=== PATIENT | male | born 1985 | race Caucasian/White ===

== ENCOUNTER 2021-03-16 17:41 | Emergency (ER) | payer OTHER ==
[~2021-03-16 17:41] MED LIST: CARAFATE1 GM PO; PEPCID AC20 MG PO
[2021-03-16 19:02] LABS: BASOPHIL 0.6 % (0-2); HCT 44.4 % (42.0-52.0); HGB 14.7 g/dl (13.2-18.0); LYMPHOCYTE 25.6 % (15-48); MCH 28.5 pg (25.0-31.0); MCHC 33.1 g/dL (32.0-36.0); MONOCYTE 6.5 % (0-12); MPV 12.4 fL (6.0-9.5); NEUTROPHIL 63.9 % (41-80); NRBC 0; PLT 198 K/uL (150-400); RBC 5.16 M/uL (4.70-6.00); WBC 10.8 K/uL (4.0-10.5)
[2021-03-16 19:22] LABS: ALBUMIN 3.5 g/dL (3.4-5.0); BILIRUBIN - TOTAL 0.5 mg/dL (0.2-1.0); BUN/CREAT RATIO (CALC) 16.2 RATIO; CREATININE 0.68 mg/dL (0.67-1.17); GLOBULIN (CALCULATION) 4.5 g/dL; POTASSIUM 4.7 mmol/L (3.5-5.1)
[2021-03-16 19:38] LABS: AMPHETAMINES NEGATIVE (NEGATIVE); BARBITURATES NEGATIVE (NEGATIVE); ECSTASY (MDMA) NEGATIVE (NEGATIVE); MARIJUANA (THC) NEGATIVE (NEGATIVE); METHADONE NEGATIVE (NEGATIVE); OPIATES NEGATIVE (NEGATIVE); OXYCODONE NEGATIVE (NEGATIVE)
[2021-03-16 19:39] LABS: BILIRUBIN NEGATIVE (NEGATIVE); BLOOD NEGATIVE Ery/uL (NEGATIVE); CLARITY CLEAR (CLEAR); COLOR YELLOW (YELLOW); GLUCOSE (U) 3+ mg/dL (NORMAL); LEUKOCYTES NEGATIVE Leu/uL (NEGATIVE); NITRITE NEGATIVE (NEGATIVE); PROTEIN NEGATIVE (NEGATIVE); UROBILINOGEN 0.2 mg/dL (0.2-1.0)
[2021-03-16] MEDS ORDERED: METFORMIN HCL500 MG PO (21:46)
== END 2021-03-16 22:43 | disposition home or self-care (01) ==
LOC: FER 17:41
PROVIDERS: Internal Medicine
DX: R73.9 Hyperglycemia, unspecified (principal); E66.01 Morbid (severe) obesity due to excess calories; Z88.1 Allergy status to other antibiotic agents
CPT/HCPCS: 36415; 80053; 80305; 81003; 82009; 83690; 85025; J2405; J7030